=== PATIENT | male | born 1990 ===

== ENCOUNTER 2017-03-06 09:11 | Emergency (ER) | payer SELFPAY ==
[2017-03-06 09:38] VITALS: BMI 19.8
[2017-03-06 09:39] VITALS: BP 100/61
--- NOTE | 2017-03-06 10:37 | C.PDOC ---
History Of Present Illness 26 y/o male, no PMHx, c/o fever since last night. Patient reports fever of 103F this morning, associated with generalized body aches and chills. Denies cough, SOB, abdominal pain, chest pain, nausea, vomiting, diarrhea. Time Seen by Provider: 03/06/17 09:52 Chief Complaint (Nursing): Fever History Per: Patient History/Exam Limitations: no limitations Current Symptoms Are (Timing): Still Present Location Of Pain: Diffuse Myalgias Sick Contacts (Context): None Associated Symptoms: Fever, Chills, Myalgias. denies: Sore Throat, Cough, Vomiting, Diarrhea Ear Symptoms: Bilateral: None Recent travel outside of the [place]: No Past Medical History Reviewed: Historical Data, Nursing Documentation, Vital Signs Vital Signs: Last Vital Signs Temp 101.9 F H 03/06/17 10:44 Pulse 97 H 03/06/17 10:44 Resp 15 03/06/17 10:44 BP 100/61 03/06/17 09:38 Pulse Ox 100 03/06/17 11:06 - Medical History PMH: No Chronic Diseases Family History: States: Unknown Family Hx - Social History Hx Alcohol Use: No Hx Substance Use: No - Immunization History Hx Tetanus Toxoid Vaccination: No Hx Influenza Vaccination: No Hx Pneumococcal Vaccination: No Review Of Systems Except As Marked, All Systems Reviewed And Found Negative. Constitutional: Positive for: Fever, Chills, Malaise ENT: Negative for: Ear Pain, Ear Discharge, Nose Congestion, Throat Pain Cardiovascular: Negative for: Chest Pain Respiratory: Negative for: Cough, Shortness of Breath, Sputum Gastrointestinal: Negative for: Nausea, Vomiting, Abdominal Pain, Diarrhea Musculoskeletal: Positive for: Other (myalgias) Skin: Negative for: Rash Neurological: Negative for: Weakness, Numbness, Headache, Dizziness Physical Exam - Physical Exam Appears: Non-toxic, No Acute Distress Skin: Normal Color, Warm, Dry, No Diaphoretic, No Rash Head: Atraumatic, Normacephalic Eye(s): bilateral: Normal Inspection, PERRL, EOMI Ear(s): Bilateral: Normal Nose: Normal Oral Mucosa: Moist Throat: Normal, No Erythema, No Exudate, No Drooling Neck: Normal ROM, Supple Chest: Symmetrical Cardiovascular: Rhythm Regular Respiratory: Normal Breath Sounds, No Accessory Muscle Use, No Rales, No Rhonchi , No Wheezing Gastrointestinal/Abdominal: Soft, No Tenderness, No Guarding, No Rebound Back: Normal Inspection Extremity: Normal ROM, No Tenderness, Capillary Refill (< 2 sec. ), No Swelling Neurological/Psych: Oriented x3, Normal Speech Gait: Steady ED Course And Treatment O2 Sat by Pulse Oximetry: 100 (RA) Pulse Ox Interpretation: Normal Medical Decision Making Medical Decision Making: Impression: fever Plan: * Tylenol * Flu swab, rapid strep test * Reassess Progress: Labs resulted negative. On re-eval patient fever is reduced. He appears well nontoxic and in no distress. Neck remains fully supple, lungs CTA B/L, abdomen soft and nontender. Clinical signs and symptoms are not suggestive sepsis, meningitis, pneumonia, intra-abdominal pathology, or cellulitis. Patient advised to continue with Mortrin or Tylenol for fever and to follow up with PCP or clinic. Disposition Counseled Patient/Family Regarding: Diagnosis, Need For Followup, Rx Given - Disposition Referrals: [facility] [Outside] [facility] [Outside] Disposition: HOME/ ROUTINE Disposition Time: 11:06 Condition: STABLE Additional Instructions: Usted tiene infeccin viral. Niraj Tylenol o Motrin alternando cada 4-6 horas para la fiebre 100.4F o ms alto. Descanse y rick muchos lquidos. 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 - Scribe Statement The provider has reviewed the documentation as recorded by the Scribblanka Jean All medical record entries made by the Nikkoibblanka were at my direction and personally dictated by me. I have reviewed the chart and agree that the record accurately reflects my personal performance of the history, physical exam, medical decision making, and the department course for this patient. I have also personally directed, reviewed, and agree with the discharge instructions and disposition.
[2017-03-06 10:44] VITALS: PULSE 97; RESP 15; TEMP 101.9
[2017-03-06 11:06] VITALS: O2SAT 100
== END 2017-03-06 11:22 | disposition home or self-care (01) ==
LOC: C.ER 09:11
DX: J11.1 Influenza due to unidentified influenza virus with other respiratory manifestations (principal); R50.9 Fever, unspecified